=== PATIENT | male | born 1965 | race Caucasian/White ===

== ENCOUNTER → 2024-07-04 11:35 | Outpatient (REF) | payer OTHER, SELFPAY | LOC: RAD 11:35 | PROVIDERS: ATTENDING PHYSICIAN Student in an Organized Health Care Education/Training Program; FAMILY PHYSICIAN Family Medicine | DX: J06.9 Acute upper respiratory infection, unspecified (principal) | CPT/HCPCS: 71046 ==

== ENCOUNTER 2024-07-04 19:06 | Emergency (ER) | payer OTHER, SELFPAY ==
[2024-07-04 19:09] VITALS: BP 128/89
[2024-07-04 19:22] LABS: % Basophils 0.5 % (0-2); % Eosinophils 0.3 % (0-6); % Immature Granulocytes 0.3 % (0-0.5); % Lymphocytes 12.4 % (20.5-51.1); % Monocytes 3.7 % (1.7-9.3); % Neutrophils 82.8 % (42.2-75.2); Absolute Lymphocytes 0.7 10^3/uL (1.2-3.4); Absolute Monocytes 0.2 10^3/uL (0.1-0.6); Absolute Neutrophils 4.9 10^3/uL (1.4-6.5); Hematocrit 47.5 % (39.0-52.0); Hemoglobin 16.2 g/dL (13.0-18.0); Mean Corp Hgb Conc. 34.1 g/dL (33.0-37.0); Mean Corpuscular Hgb 30.6 pg (27.0-31.0); Mean Corpuscular Volume 89.6 fL (80.0-94.0); Mean Platelet Volume 9.7 fL (7.4-10.4); Nucleated Red Blood Cells % 0 % (-); Platelet Count 197 10^3/uL (130-400); Red Cell Dist. Width 12.6 % (11.5-14.5); White Blood Cell Count 5.9 10^3/uL (4.8-10.8)
[2024-07-04 19:40] LABS: ALT (SGPT) 30 U/L (0-50); AST (SGOT) 23 U/L (17-59); Albumin 4.8 g/dl (3.5-5.0); Alkaline Phosphatase 82 U/L (38-126); Blood Urea Nitrogen 19 mg/dl (9-20); Calcium 9.1 mg/dl (8.4-10.2); Carbon Dioxide 26 mmol/L (22-30); Chloride 102 mmol/L (98-107); Glucose 190 mg/dl (70-99); Sodium 137 mmol/L (135-145); Total Bilirubin 0.2 mg/dl (0.2-1.3); Total Protein 7.3 g/dl (6.3-8.2); eGFR > 60.00
[2024-07-04] MEDS: DUONEB 3 ML INH ×2 (21:18→21:46)
[2024-07-04] MEDS: NSS 500 IV (21:18)
--- NOTE | 2024-07-04 21:23 | ED.GENMED ---
History of Present Illness
<FRANCISCO Blank - Last Filed: 07/05/24 01:01>
General
Chief Complaint: Breathing Problem
Source: patient
Exam Limitations: none
Time Seen by Provider: 07/04/24 20:54
History of Present Illness
History of Present Illness:
This is a 59 year old male that comes in with c/o SOB. States that about 1.5 weeks ago he started to get sick. 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 States that in February he was sick and then
at [facility]. States that about 1.5 weeks ago he started with this burning in his chest. States that he was place on a Z-pack for 5 days, and steroids. States that the steroid ended yesterday. States that he continued with wheezing. States that
he went to the certified health education specialist today. States that he was now placed on a Z-pack and Augmentin for 7 days. States that they put him back on Prednisone taper and he started at 30mg TID. States that he also started Trelegy 1 puff for 2 weeks and
after 14 days he was to restart his Breo 200mcq 1 puff daily. States that he was told that if he did not start to feel better to come to the Emergency room. States that he is still wheezing and SOB. Denies any fever, chills, chest pain, abd pain,
nausea, vomiting, diarrhea, headache, dizziness, urinary burning.
Past History
<FRANCISCO Blank - Last Filed: 07/05/24 01:01>
Past History
ED Past Medical History: Asthma, Hypercholesterolemia, Hypothyroidism, Other (Seasonal allergies, Migraines, ) and Other (Asthma, hypothyroidism, hypercholesterolemia)
ED Past Surgical History: Urological (Varicocele) and Other (Sinus surgery)
Social History
Tobacco: Non-smoker
Alcohol: None
Personal:
Living: with family
Employment: Employed
Family History
Family History: CAD
Review of Systems
<FRANCISCO Blank - Last Filed: 07/05/24 01:01>
Review of Systems
All Other Systems: ROS reviewed and negative except as documented in HPI and ROS
Constitutional: Reports no symptoms; Denies fever or chills
EENT: Reports no symptoms
Respiratory: Reports cough and trouble breathing
Cardiac: Reports no symptoms; Denies chest pain
ABD/GI: Reports no symptoms; Denies abdominal pain, nausea, vomiting or diarrhea
: Reports no symptoms; Denies dysuria, frequency or urgency
Musculoskeletal: Reports no symptoms
Skin: Reports no symptoms
Neurological: Reports no symptoms; Denies dizzy or headache
Psychiatric: Reports no symptoms
Phy Exam
<FRANCISCO Blank - Last Filed: 07/05/24 01:01>
General Physical Exam
General Presentation: well appearing and no apparent distress
General age: appears stated age
General Skin: warm and dry
General Habitus: normal
General Mental: alert
General Hydration: appears well hydrated
ENT Exam
ENT Exam: TM's normal, pharynx normal and neck supple
Eye Exam
Eye Exam: EOMI
Cardiovascular Exam
Cardiovascular Exam: regular rate/rhythm, no edema, no murmur and normal peripheral pulses
Pulmonary Exam
Pulmonary Exam: no respiratory distress, no rales, chest non tender, no crackles, no rhonchi and generalized wheezing (Esxp wheezing througout)
Gastrointestinal Exam
Gastrointestinal Exam: normal bowel sounds, non tender, soft, no organomegaly, no pulsatile mass and non distended
Musculoskeletal Exam
Musculoskeletal Exam: full ROM and no edema
Skin Exam
Skin Exam: normal color, warm/dry, no rash and no petechia
Psychiatric Exam
Psychiatric Exam: normal mood/affect
Scores
<FRANCISCO Blank - Last Filed: 07/05/24 01:01>
Heart Failure Risk
Heart Failure Risk Score: Not Applicable
Course
<FRANCISCO Blank - Last Filed: 07/05/24 01:01>
Orders/Labs/Results
Orders:
Orders
07/04/24 19:15
Complete Blood Count/With Diff Urgent
Comprehensive Metabolic Panel Urgent
07/04/24 21:07
CT Chest PE Study Urgent
Comment:
Reason For Exam: SOB, Wheezing, Cough
0.9% Sodium Chloride 500 ml [Nss] 500 ml IV BOLUS
Ipratropium/Albuterol Sulfate [Duoneb] 3 ml INH R NOW ONE
07/04/24 21:32
Electrocardiogram (*1) Urgent
Reason for Study: Shortness of Breath
EKG- Treatment ONCE
07/04/24 21:38
Ipratropium/Albuterol Sulfate [Duoneb] 3 ml INH R NOW STA
Magnesium Sulfate 2 Gram/50 ml [Magnesium Sulfate] 2 gram in 50 ml IV NOW
Abnormal Lab Results
07/04/24
19:15
Absolute Lymphs (auto) 0.7 L 10^3/uL
(1.2-3.4)
Neutrophils % 82.8 H %
(42.2-75.2)
Lymphocytes % 12.4 L %
(20.5-51.1)
Glucose 190 H mg/dl
(70-99)
07/04/24 19:15
07/04/24 19:15
Hyperglycemia. (patient on steroids)
Vital Signs
Initial and Last Documented VS:
Initial Vital Signs
Temp Pulse Resp BP Pulse Ox
97.7 F 125 16 128/89 97
07/04/24 19:09 07/04/24 19:09 07/04/24 19:09 07/04/24 19:09 07/04/24 19:09
Last Documented Vital Signs
Temp Pulse Resp BP Pulse Ox
97.7 F 102 23 128/85 97
07/04/24 19:09 07/05/24 00:30 07/05/24 00:00 07/05/24 00:00 07/05/24 00:15
<Eugenio Wahl, DO - Last Filed: 07/04/24 21:40>
Orders/Labs/Results
Orders:
Orders
07/04/24 19:15
Complete Blood Count/With Diff Urgent
Comprehensive Metabolic Panel Urgent
07/04/24 21:07
CT Chest PE Study Urgent
Comment:
Reason For Exam: SOB, Wheezing, Cough
0.9% Sodium Chloride 500 ml [Nss] 500 ml IV BOLUS
Ipratropium/Albuterol Sulfate [Duoneb] 3 ml INH R NOW ONE
07/04/24 21:32
Electrocardiogram (*1) Urgent
Reason for Study: Shortness of Breath
EKG- Treatment ONCE
07/04/24 21:38
Ipratropium/Albuterol Sulfate [Duoneb] 3 ml INH R NOW STA
Magnesium Sulfate 2 Gram/50 ml [Magnesium Sulfate] 2 gram in 50 ml IV NOW
Abnormal Lab Results
07/04/24
19:15
Absolute Lymphs (auto) 0.7 L 10^3/uL
(1.2-3.4)
Neutrophils % 82.8 H %
(42.2-75.2)
Lymphocytes % 12.4 L %
(20.5-51.1)
Glucose 190 H mg/dl
(70-99)
07/04/24 19:15
07/04/24 19:15
Vital Signs
Initial and Last Documented VS:
Initial Vital Signs
Temp Pulse Resp BP Pulse Ox
97.7 F 125 16 128/89 97
07/04/24 19:09 07/04/24 19:09 07/04/24 19:09 07/04/24 19:09 07/04/24 19:09
Last Documented Vital Signs
Temp Pulse Resp BP Pulse Ox
97.7 F 102 23 128/85 97
07/04/24 19:09 07/05/24 00:30 07/05/24 00:00 07/05/24 00:00 07/05/24 00:15
<FRANCISCO Blank - Last Filed: 07/05/24 01:01>
MDM/Problems Addressed
Differential Diagnosis Includes:
Asthma exacerbation. PE,
MDM/Problems Addressed:
This is a 59 year old male that comes in with c/o SOB for over a 1.5 weeks. States that he has been on steroid and antibiotics. Patient has seen his certified health education specialist today and was told that if he did not feel better to come to the emergency
room.
Will check labs, patient had an out patient chest x-ray realier today. Will get CT as patient is tachycardia.
Back into see patient. Reviewed CT findings. Explained that he still has Expiratory wheezing throughout. Offered patient admission. Patient is calling his .
Into see patient. Patient states at this time that he does feel better then he did when he came in. States that he has decided that he will go home. Highly suggested to patient that he stay. Explained to patient that he is still very wheeze.
Patient states that he will come right back if things change as he has a lot of things to take care of. Will give patient certified health education specialist for follow up.
Chronic conditions affecting care: Asthma
Acute Exacerbation and/or Progression of Chronic Illness: Asthma
<FRANCISCO Blank - Last Filed: 07/05/24 01:01>
*Radiology
Radiology exam reviewed: radiology read reviewed (Chest done as out patient- No acute cardiopulmonary process. NO interval change CT chest=Severe Mosiac attenuation pattern throughout both lungs which is most likely secondary to Severe obstructive
small airways disease considering the history of asthma. Mild elevation of the right hemidiaphragm. ) and other (CT cont- MIld splenomegaly. )
*Pulse Oximetry
Patient hypoxic: no
*Critical Care Note
Total Time (30-74mins, 75-104mins- exclusive of procedures): Not Applicable
ED Attending Note
<FRANCISCO Blank - Last Filed: 07/05/24 01:01>
-
Portions of this chart may have been created with voice recognition software.� Occasional wrong word or��sound alike� substitutions may have occurred due to the inherent limitations of voice recognition software.
<Eugenio Wahl DO - Last Filed: 07/04/24 21:40>
ED Attending Note
Patient seen and examined by attending physician: Yes
I performed the substantive portion of visit, reviewed & personally made and approve the management plan that is documented in note by myself or ELLY.: Yes
ED Attending Note:
I evaluated the patient at bedside. The patient has ongoing wheezing and already had most of his neb�will add a second DuoNeb. Will also add IV magnesium. CTA pending. He did arrive tachycardic.
Discharge Plan
Departure
Patient Disposition: Home (Routine Discharge)
Date of Disposition: 07/05/24
Time of Disposition: 00:56
Patient with high blood pressure during this ER visit?: No
Condition: Good
Covid-19: Not Applicable
Discharge Problem:
Asthma, Bilateral wheezing
Instructions: Asthma, Adult (DC), Wheezing in adults - ED discharge instructions
Prescriptions:
No Action
Clarinex-D 24 Hour Tablet
1 tab PO DAILY
levothyroxine 175 MCG tablet
0.5 tab PO NUÑEZ
levothyroxine 175 MCG tablet
175 mcg PO DAILY
Patient Comments:
except Sun
rosuvastatin 5 MG tablet
5 mg PO QPM
melatonin 5 MG tablet
5 mg PO HS
fluticasone furoate-vilanterol [Breo Ellipta] 1 EACH blister with device
1 ea IH DAILY
azithromycin [Zithromax TRI-WILEY] 500 MG tablet
500 mg PO DAILY Qty: 3 0RF
ibuprofen 800 MG tablet
800 mg PO QIDPRN PRN (Reason: pain, take with food) Qty: 30 0RF
Referrals:
Ap Hector MD [Active] - Follow up in 2-3 days
Azar Corea DO [Family Provider] -
Activity Restrictions/Additional Instructions:
As discussed, your blood work shows that your blood sugar is elevated. Your CT is negative for any pulmonary embolism but shows Severe obstructive disease in the small airways. You have been given the name of a certified health education specialist for follow up.
Please increase your water intake to 8-8oz glasses daily. Use your medication that you have been prescribed at home. IF YOU HAVE INCREASED SHORTNESS OF BREATH, OR YOU HAVE AN YOTHER CONCERNS PLEASE RETURN TO THE EMERGENCY ROOM
Interventions
Interventions:
ED- Cardiac Assessment Last Done: 07/04/24 21:25
ED- Pulmonary Assessment Last Done: 07/04/24 21:25
Discharge Date and Time
Print Language: PARAGUAYAN
[2024-07-04] MEDS: MAGNESIUM SULFATE 50 IV (21:49)
[2024-07-04 22:07] VITALS: BP 130/95
[2024-07-04 23:00] VITALS: BP 110/60
[2024-07-05] VITALS: BP 128/85
== END 2024-07-05 01:13 | disposition home or self-care (01) ==
LOC: EMR 19:06
PROVIDERS: Emergency Medicine; EMERGENCY PHYSICIAN Emergency Medicine; FAMILY PHYSICIAN Family Medicine
DX: R06.02 Shortness of breath (principal); J45.909 Unspecified asthma, uncomplicated; E78.00 Pure hypercholesterolemia, unspecified; E03.9 Hypothyroidism, unspecified; Z82.49 Family history of ischemic heart disease and other diseases of the circulatory system
CPT/HCPCS: 99284; 94640; 96365; 71275; 80053; 85025; 93005; Q9967